=== PATIENT | female | born 1960 | race Caucasian/White ===

== ENCOUNTER 2016-11-10 12:24 | Emergency (ER) | payer MEDICARE, OTHER ==
--- NOTE | 2016-11-10 13:53 | DIAGNOSTIC IMAGING REPORT ---
PROCEDURE: XR CHEST 2 VIEW INDICATION: COUGH TECHNIQUE: PA and lateral view. COMPARISON: None. FINDINGS: Lungs are clear. Cardiovascular structures are normal. Old right fifth rib fracture. Mild degenerative changes of the spine. IMPRESSION: 1. No acute changes.
--- NOTE | 2016-11-10 13:56 | ED NURSING NOTES ---
Clinical Report - Nurses [facility] [address] [place] [address] 11/10/2016 12:29 Patient: ANA WASHINGTON TRIAGE Triage time 12:40 Nov 10 2016. Acuity: LEVEL 3. Chief Complaint: COUGH, RUNNY NOSE and SORE THROAT. CHRYSTAL COMA SCORE: [place] Coma Scale: 15- eyes open spontaneously (4); best verbal response- oriented x 4 (5); best motor response- obeys commands (6). --12:52 Dereck Godinez R.N. 12:40 11/10/16. BP: 119/81. HR: 70. RR: 18. O2 saturation: 96%. Temp: 97.7 F. Pain level now 9/10. --12:52 Dereck Godinez R.N. Weight: 81.6 kg stated. Height/Length: 61 inches Per Patient. BMI: 34. --12:51 Dereck Godinez R.N. Medications MetFORMIN HCl Oral. --12:44 Dereck Godinez R.N. 70 30 insulin. --12:45 Dereck Godinez R.N. Fexofenadine HCl Oral. --12:46 Dereck Godinez R.N. Morphine Sulfate Oral. --12:46 Dereck Godinez R.N. OxyCODONE HCl Oral. --12:46 Dereck Godinez R.N. Vitamin Mixture Oral. --12:46 Dereck Godinez R.N. Lyrica Oral. --12:46 Dereck Godinez R.N. Allergies Flu Virus Vaccine. --12:47 Dereck Godinez R.N. Iodine. --12:47 Dereck Godinez R.N. History Arrived by private vehicle. Historian: patient. Accompanied by family. This started last night. ( c/o back pains and sciatic pains.). She has had a nasal discharge, chest congestion, chills, fatigue and a headache. She has had photophobia and difficulty breathing. Reports muscle aches. No sinus pain. PAST MEDICAL HX: Diabetes mellitus. Immunizations: up-to-date. The patient is post-menopausal. SOCIAL HX: Former smoker, end date 2008. No alcohol use or drug use. No infectious disease exposure. SELF HARM ASSESSMENT: A self harm assessment was performed. The patient answered "yes" to the question "Have you recently felt down, depressed, or hopeless?" and "no" to the question "Do you have thoughts of harming or killing yourself?". FALL RISK ASSESSMENT: Fall risk assessment completed. No fall risk identified. NUTRITIONAL RISK ASSESSMENT: The nutritional risk assessment revealed no deficiencies. FUNCTIONAL ASSESSMENT: Functional assessment: no impairments noted. LEARNING NEEDS ASSESSMENT: The learning needs assessment revealed no barriers. ABUSE ASSESSMENT: Abuse assessment: (yes) The patient was asked "Do you feel safe in your home?". SKIN INTEGRITY ASSESSMENT: Skin integrity risk assessment completed. No skin integrity risk identified. --12:52 Dereck Godinez R.N. PROBLEMS: Asthma without status asthmaticus. Depression. Fibromyalgia. Diabetes Mellitus. --12:49 Dereck Godinez R.N. ADDITIONAL SURGERIES: Cholecystectomy. . Stomach surgery . --12:49 Dereck Godinez R.N. Interventions ID and allergy band on patient. --12:52 Dereck Godinez R.N. PHYSICAL ASSESSMENT Ambulatory to room. GENERAL / NEURO / PSYCH: Alert. Oriented X 4. Appears in no acute distress. HEENT: Pupils equal, round and reactive to light. Ears within normal limits. Runny nose. Nares within normal limits. Mouth within normal limits upon inspection. Pharynx within normal limits. Voice within normal limits. ( Patient states throat hurts pretty bad.). Mucous membranes are pink. RESPIRATORY: Respirations not labored. Breath sounds within normal limits. CVS: Normal sinus rhythm noted. Capillary refill less than 2 seconds. SKIN: Skin is warm and dry. Normal skin turgor. --12:53 Dereck Godinez R.N. NURSING PROGRESS NOTES Pulse oximeter and NIBP monitor placed on patient. Head of bed elevated (90). Reassurance given. Call light placed in reach. Side rails up x 1. Bed placed in lowest position. Brakes of bed on. --12:54 Dereck Godinez R.N. 13:07 11/10/2016 Toradol (Ketorolac Tromethamine) IM 60 mg given. Given in the right gluteus audrey and left gluteus audrey (split dose). Allergies verified and confirmed 5 rights. --13:07 Dereck Godinez R.N. DISPOSITION / DISCHARGE Departure time: 14:Nov 10 2016. Condition at departure: improved. No learning barriers present. Discharge instructions provided and reviewed with the patient. Reviewed warnings. Reviewed medication(s). Treatments reviewed. Reviewed referrals. Patient verbalized understanding. Written instructions provided in Irish. The patient was discharged home and accompanied by family. She left the Emergency Department ambulatory and via private vehicle. Family member driving. --14:45 Dereck Godinez R.N. 14:33 11/10/16. BP: 122/72. HR: 72. RR: 20. O2 saturation: 98%. Temp: 98.4 F. Pain level now 0/10. --14:45 Dereck Godinez R.N. Locked/Released at 11/11/2016 9:50 by Dereck Godinez R.N.
--- NOTE | 2016-11-10 13:56 | ED NURSING NOTES ---
Clinical Report - Nurses [facility] [address] [place] [address] 11/10/2016 12:29 Patient: ANA WASHINGTON TRIAGE Triage time 12:40 Nov 10 2016. Acuity: LEVEL 3. Chief Complaint: COUGH, RUNNY NOSE and SORE THROAT. CHRSYTAL COMA SCORE: [place] Coma Scale: 15- eyes open spontaneously (4); best verbal response- oriented x 4 (5); best motor response- obeys commands (6). --12:52 Dereck Godinez R.N. 12:40 11/10/16. BP: 119/81. HR: 70. RR: 18. O2 saturation: 96%. Temp: 97.7 F. Pain level now 9/10. --12:52 Dereck Godinez R.N. Weight: 81.6 kg stated. Height/Length: 61 inches Per Patient. BMI: 34. --12:51 Dereck Godinez R.N. Medications MetFORMIN HCl Oral. --12:44 Dereck Godinez R.N. 70 30 insulin. --12:45 Dereck Godinez R.N. Fexofenadine HCl Oral. --12:46 Dereck Godinez R.N. Morphine Sulfate Oral. --12:46 Dereck Godinez R.N. OxyCODONE HCl Oral. --12:46 Dereck Godinez R.N. Vitamin Mixture Oral. --12:46 Dereck Godinez R.N. Lyrica Oral. --12:46 Dereck Godinez R.N. Allergies Flu Virus Vaccine. --12:47 Dereck Godinez R.N. Iodine. --12:47 Dereck Godinez R.N. History Arrived by private vehicle. Historian: patient. Accompanied by family. This started last night. ( c/o back pains and sciatic pains.). She has had a nasal discharge, chest congestion, chills, fatigue and a headache. She has had photophobia and difficulty breathing. Reports muscle aches. No sinus pain. PAST MEDICAL HX: Diabetes mellitus. Immunizations: up-to-date. The patient is post-menopausal. SOCIAL HX: Former smoker, end date 2008. No alcohol use or drug use. No infectious disease exposure. SELF HARM ASSESSMENT: A self harm assessment was performed. The patient answered "yes" to the question "Have you recently felt down, depressed, or hopeless?" and "no" to the question "Do you have thoughts of harming or killing yourself?". FALL RISK ASSESSMENT: Fall risk assessment completed. No fall risk identified. NUTRITIONAL RISK ASSESSMENT: The nutritional risk assessment revealed no deficiencies. FUNCTIONAL ASSESSMENT: Functional assessment: no impairments noted. LEARNING NEEDS ASSESSMENT: The learning needs assessment revealed no barriers. ABUSE ASSESSMENT: Abuse assessment: (yes) The patient was asked "Do you feel safe in your home?". SKIN INTEGRITY ASSESSMENT: Skin integrity risk assessment completed. No skin integrity risk identified. --12:52 Dereck Godinez R.N. PROBLEMS: Asthma without status asthmaticus. Depression. Fibromyalgia. Diabetes Mellitus. --12:49 Dereck Godinez R.N. ADDITIONAL SURGERIES: Cholecystectomy. . Stomach surgery . --12:49 Dereck Godinez R.N. Interventions ID and allergy band on patient. --12:52 Dereck Godinez R.N. PHYSICAL ASSESSMENT Ambulatory to room. GENERAL / NEURO / PSYCH: Alert. Oriented X 4. Appears in no acute distress. HEENT: Pupils equal, round and reactive to light. Ears within normal limits. Runny nose. Nares within normal limits. Mouth within normal limits upon inspection. Pharynx within normal limits. Voice within normal limits. ( Patient states throat hurts pretty bad.). Mucous membranes are pink. RESPIRATORY: Respirations not labored. Breath sounds within normal limits. CVS: Normal sinus rhythm noted. Capillary refill less than 2 seconds. SKIN: Skin is warm and dry. Normal skin turgor. --12:53 Dereck Godinez R.N. NURSING PROGRESS NOTES Pulse oximeter and NIBP monitor placed on patient. Head of bed elevated (90). Reassurance given. Call light placed in reach. Side rails up x 1. Bed placed in lowest position. Brakes of bed on. --12:54 Dereck Godinez R.N. 13:07 11/10/2016 Toradol (Ketorolac Tromethamine) IM 60 mg given. Given in the right gluteus audrey and left gluteus audrey (split dose). Allergies verified and confirmed 5 rights. --13:07 Dereck Godinez R.N. DISPOSITION / DISCHARGE Departure time: 14:Nov 10 2016. Condition at departure: improved. No learning barriers present. Discharge instructions provided and reviewed with the patient. Reviewed warnings. Reviewed medication(s). Treatments reviewed. Reviewed referrals. Patient verbalized understanding. Written instructions provided in Japanese. The patient was discharged home and accompanied by family. She left the Emergency Department ambulatory and via private vehicle. Family member driving. --14:45 Dereck Godinez R.N. 14:33 11/10/16. BP: 122/72. HR: 72. RR: 20. O2 saturation: 98%. Temp: 98.4 F. Pain level now 0/10. --14:45 Dereck Godinez R.N. Locked/Released at 11/11/2016 9:50 by Dereck Godinez R.N.
--- NOTE | 2016-11-10 13:56 | ED CLINICAL REPORT ---
Clinical Report - Physicians/Mid Levels [facility] [address] [place] [address] 11/10/2016 12:29 Patient: ANA WASHINGTON Time Seen: 12:38; initial patient contact. Arrived- By private vehicle. Historian- patient. HISTORY OF PRESENT ILLNESS Chief Complaint: COUGH, SORE THROAT and CHILLS. This started about 2 weeks ago and is still present. It was gradual in onset. The illness is described as mild. The patient has had sputum production, a cough, a sore throat, nasal congestion and sinus drainage. She has had chills, muscle aches and a nasal discharge. No difficulty breathing, chest discomfort or pain, fever or hoarseness. No sinus pressure. Additional history - No known contact with a sick individual. Similar symptoms previously: None. Recent medical care: Not recently seen/assessed. REVIEW OF SYSTEMS No headache, nausea or vomiting. She has had back pain. All systems otherwise negative, except as recorded above. PAST HISTORY Asthma without status asthmaticus. Depression. Fibromyalgia. Diabetes Mellitus. SURGERIES: Cholecystectomy. . Stomach surgery. SOCIAL HISTORY Former smoker. No alcohol use or drug use. ADDITIONAL NOTES The nursing notes have been reviewed with agreement regarding the chief complaint, PMH and patient medications and allergies. PHYSICAL EXAM Vital Signs: 11/10/2016 12:40 BP: 119/81. HR: 70. RR: 18. O2 saturation: 96%. Temp: 97.7 F. Have been reviewed as normal. Appearance: Alert. No acute distress. Eyes: Eyes normal inspection. ENT: Ears normal. Nose normal. Mild generalized pharyngeal erythema. The mucous membranes are not dry. Neck: No lymphadenopathy. CVS: Normal heart rate and rhythm. Heart sounds normal. Respiratory: No respiratory distress. Breath sounds normal. Back: Mild soft-tissue tenderness in the right lower and left lower lumbar area. No CVA tenderness. Skin: No rash. Neuro: Oriented X 3. LABS, X-RAYS, AND EKG Chest X-ray: No acute disease. Normal lung markings present. Normal heart size. Mediastinum normal. Great vessels normal. Soft tissues normal. No infiltrate. No fracture. No bony lesion present. Views: PA and lateral. Technique: good. The X-rays were independently viewed by me and interpreted contemporaneously by me. Prior films were not available for comparison. Interpretation time: 13:47. PROGRESS AND PROCEDURES Course of Care: Toradol 60mg IM given. Physical exam findings are improved. Symptoms much better. Disposition: Discharged home in good and improved condition. Condition: good. CLINICAL IMPRESSION Acute maxillary sinusitis Chronic nontraumatic lumbar back pain associated with sprain. INSTRUCTIONS Your Current Medications: CONTINUE TAKING THE FOLLOWING MEDICATIONS: 70 30 insulin*. Fexofenadine HCl Oral. Lyrica Oral. MetFORMIN HCl Oral. Morphine Sulfate Oral. OxyCODONE HCl Oral. Vitamin Mixture Oral. Prescription Medications: Zithromax 500 mg tablets: take 1 orally every day for 3 days. No refills. Substitution is permissible. Follow-up: Follow up with your doctor in about three days if not better. Call for an appointment. Screening today revealed the patient's blood pressure to be in the pre-hypertensive range. The patient should follow up with a primary care provider for blood pressure management. (Electronically signed by Albaro Olguin Dr. 11/10/2016 14:02)
--- NOTE | 2016-11-10 13:56 | ED ORDER SUMMARY ---
..... Patient: ANA WASHINGTON H OrderSheet [facility] VisitID: [id number] [address] [place] [address] 55y, F Registration Date/Time: 11/10/2016 ORDER SHEET Weight: 81.6 kg (stated) Allergies: Flu Virus Vaccine, Iodine GENERAL ORDERS: Chest 2V Urgent (12:58 11/10/2016 Jean-Pierre Gomez) (Ack 13:06 Jack) MEDICATION ORDERS: Toradol IM 60 mg (NOW) (12:59 11/10/2016 Jean-Pierre Gomez) (13:07 Richie Gonzalez.NToy) IV FLUIDS: ORDER SHEET NOTES: [Electronically signed by Albaro Olguin Dr. (14:02 11/10/2016)] [Electronically signed by Dereck Godinez R.N. (09:50 11/11/2016)] [Electronically locked/signed by Dereck Godinez R.N. (09:50 11/11/2016)]
--- NOTE | 2016-11-10 13:56 | ED ORDER SUMMARY ---
..... Patient: ANA WASHINGTON H OrderSheet [facility] VisitID: [id number] [address] [place] [address] 55y, F Registration Date/Time: 11/10/2016 ORDER SHEET Weight: 81.6 kg (stated) Allergies: Flu Virus Vaccine, Iodine GENERAL ORDERS: Chest 2V Urgent (12:58 11/10/2016 Jean-Pierre Gomez) (Ack 13:06 Jack) MEDICATION ORDERS: Toradol IM 60 mg (NOW) (12:59 11/10/2016 Jean-Pierre Gomez) (13:07 Richie Gonzalez.NToy) IV FLUIDS: ORDER SHEET NOTES: [Electronically signed by Albaro Olguin Dr. (14:02 11/10/2016)] [Electronically signed by Dereck Godinez R.N. (09:50 11/11/2016)] [Electronically locked/signed by Dereck Godinez R.N. (09:50 11/11/2016)]
--- NOTE | 2016-11-10 13:56 | ED CLINICAL REPORT ---
Clinical Report - Physicians/Mid Levels [facility] [address] [place] [address] 11/10/2016 12:29 Patient: ANA WASHINGTON Time Seen: 12:38; initial patient contact. Arrived- By private vehicle. Historian- patient. HISTORY OF PRESENT ILLNESS Chief Complaint: COUGH, SORE THROAT and CHILLS. This started about 2 weeks ago and is still present. It was gradual in onset. The illness is described as mild. The patient has had sputum production, a cough, a sore throat, nasal congestion and sinus drainage. She has had chills, muscle aches and a nasal discharge. No difficulty breathing, chest discomfort or pain, fever or hoarseness. No sinus pressure. Additional history - No known contact with a sick individual. Similar symptoms previously: None. Recent medical care: Not recently seen/assessed. REVIEW OF SYSTEMS No headache, nausea or vomiting. She has had back pain. All systems otherwise negative, except as recorded above. PAST HISTORY Asthma without status asthmaticus. Depression. Fibromyalgia. Diabetes Mellitus. SURGERIES: Cholecystectomy. . Stomach surgery. SOCIAL HISTORY Former smoker. No alcohol use or drug use. ADDITIONAL NOTES The nursing notes have been reviewed with agreement regarding the chief complaint, PMH and patient medications and allergies. PHYSICAL EXAM Vital Signs: 11/10/2016 12:40 BP: 119/81. HR: 70. RR: 18. O2 saturation: 96%. Temp: 97.7 F. Have been reviewed as normal. Appearance: Alert. No acute distress. Eyes: Eyes normal inspection. ENT: Ears normal. Nose normal. Mild generalized pharyngeal erythema. The mucous membranes are not dry. Neck: No lymphadenopathy. CVS: Normal heart rate and rhythm. Heart sounds normal. Respiratory: No respiratory distress. Breath sounds normal. Back: Mild soft-tissue tenderness in the right lower and left lower lumbar area. No CVA tenderness. Skin: No rash. Neuro: Oriented X 3. LABS, X-RAYS, AND EKG Chest X-ray: No acute disease. Normal lung markings present. Normal heart size. Mediastinum normal. Great vessels normal. Soft tissues normal. No infiltrate. No fracture. No bony lesion present. Views: PA and lateral. Technique: good. The X-rays were independently viewed by me and interpreted contemporaneously by me. Prior films were not available for comparison. Interpretation time: 13:47. PROGRESS AND PROCEDURES Course of Care: Toradol 60mg IM given. Physical exam findings are improved. Symptoms much better. Disposition: Discharged home in good and improved condition. Condition: good. CLINICAL IMPRESSION Acute maxillary sinusitis Chronic nontraumatic lumbar back pain associated with sprain. INSTRUCTIONS Your Current Medications: CONTINUE TAKING THE FOLLOWING MEDICATIONS: 70 30 insulin*. Fexofenadine HCl Oral. Lyrica Oral. MetFORMIN HCl Oral. Morphine Sulfate Oral. OxyCODONE HCl Oral. Vitamin Mixture Oral. Prescription Medications: Zithromax 500 mg tablets: take 1 orally every day for 3 days. No refills. Substitution is permissible. Follow-up: Follow up with your doctor in about three days if not better. Call for an appointment. Screening today revealed the patient's blood pressure to be in the pre-hypertensive range. The patient should follow up with a primary care provider for blood pressure management. (Electronically signed by Albaro Olguin Dr. 11/10/2016 14:02)
--- NOTE | 2016-11-11 09:51 | ED MED RECONCILIATION SUMMARY ---
Patient: ANA WASHINGTON Medication Reconciliation Report [facility] VisitID: [id number] [address] [place] [address] 55y, F Registration Date/Time: 11/10/2016 Weight: 81.6 kg Height/Length: 61 in. BMI: 34.0 ALLERGIES: Flu Virus Vaccine, Iodine The patient's Home Medications are listed below: CONTINUE TAKING THE FOLLOWING MEDICATIONS: 70 30 insulin Fexofenadine HCl Oral Lyrica Oral MetFORMIN HCl Oral Morphine Sulfate Oral OxyCODONE HCl Oral Vitamin Mixture Oral The source(s) of the original Home Medication information: Not obtained. The following Medications were given to the patient in the Emergency Department: Toradol [IM] IM 60 mg, administered: 11/10/2016 1:07:00 PM The following Medications were prescribed to the patient: Zithromax 500 mg tablets: take 1 orally every day for 3 days. No refills. Substitution is permissible. -- Albaro lOguin Dr.
--- NOTE | 2016-11-11 09:51 | ED DISCHARGE INSTRUCTIONS ---
Patient: ANA WASHINGTON General Instructions [facility] VisitID: [id number] [address] [place] [address] 55y, F Registration Date/Time: 11/10/2016 Acute maxillary sinusitis Chronic nontraumatic lumbar back pain associated with sprain. INSTRUCTIONS Your Current Medications: CONTINUE TAKING THE FOLLOWING MEDICATIONS: 70 30 insulin*. Fexofenadine HCl Oral. Lyrica Oral. MetFORMIN HCl Oral. Morphine Sulfate Oral. OxyCODONE HCl Oral. Vitamin Mixture Oral. Prescription Medications: Zithromax 500 mg tablets: take 1 orally every day for 3 days. No refills. Substitution is permissible. Follow-up: Follow up with your doctor in about three days if not better. Call for an appointment. Screening today revealed the patient's blood pressure to be in the pre-hypertensive range. The patient should follow up with a primary care provider for blood pressure management. ADDITIONAL INFORMATION Sinusitis [Abx Tx] The sinuses are air-filled spaces within the bones of the face. They connect to the inside of the nose. Sinusitis is an inflammation of the tissue lining the sinus cavity. Sinus inflammation can occur during a cold or hay-fever (allergies to pollens and other particles in the air) and cause symptoms of sinus congestion and fullness. A sinus infection causes fever, headache and facial pain. There is usually green or yellow drainage from the nose or into the back of the throat (post-nasal drip). Antibiotics are prescribed to treat this condition. Home Care: Drink plenty of water, hot tea, and other liquids to stay well hydrated. This thins the mucus and promotes sinus drainage. Apply heat to the painful areas of the face. Use a towel soaked in hot water. Or, director of fundraising the shower and direct the hot spray onto your face. This is a good way to inhale warm water vapor and get heat on your face at the same time. (Cover your mouth and nose with your hands so you can still breathe as you do this.) Use a vaporizer with products such as Vicks VapoRub (contains menthol) at night. Suck on peppermint, menthol or eucalyptus hard candies during the day. An expectorant containing guaifenesin (such as Robitussin), helps to thin the mucus and promote drainage from the sinuses. Hyla-xab-uxwaehi decongestants may be used unless a similar medicine was prescribed. Nasal sprays work the fastest. Use one that contains phenylephrine (Agus-synephrine, Sinex and others) or oxymetazoline (Afrin). First blow the nose gently to remove mucus, then apply the drops. Do not use these medicines more often than directed on the label or for more than three days or symptoms may worsen. You may also use tablets containing pseudoephedrine (Sudafed). Many sinus remedies combine ingredients, which may increase side effects. Read the labels or ask the pharmacist for help. NOTE: Persons with high blood pressure should not use decongestants. They can raise blood pressure. Antihistamines are useful if allergies are a cause of your sinusitis. The mildest one is chlorpheniramine (available without a prescription). The dose for adults is 8-12mg three times a day. [NOTE: Do not use chlorpheniramine if you have glaucoma or if you are a man with trouble urinating due to an enlarged prostate.] Claritin (loratidine) is an antihistamine that causes less drowsiness and is a good alternative for daytime use. Do not use nasal rinses or irrigation during an acute sinus infection, unless advised by your doctor. Rinsing may spread the infection to other sinuses. You may use acetaminophen (Tylenol) or ibuprofen (Motrin, Advil) to control pain, unless another pain medicine was prescribed. [ NOTE: If you have chronic liver or kidney disease or ever had a stomach ulcer, talk with your doctor before using these medicines.] (Aspirin should never be used in anyone under 18 years of age who is ill with a fever. It may cause severe liver damage.) Finish the full course, even if you are feeling better after a few days. Follow Up with your doctor or this facility in one week or as instructed by our staff if not improving. Get Prompt Medical Attention if any of the following occur: Facial pain or headache becomes more severe Stiff neck Unusual drowsiness or confusion, or not acting like your normal self Swelling of the forehead or eyelids Vision problems including blurred or double vision Fever of 100.4F (38C) or higher, or as directed by your healthcare provider Seizure Back Pain [Acute Or Chronic] Back pain is usually caused by an injury to the muscles or ligaments of the spine. Sometimes the disks that separate each bone in the spine may bulge and cause pain by pressing on a nearby nerve. Back pain may also appear after a sudden twisting/bending force (such as in a car accident), after a simple awkward movement, or lifting something heavy with poor body positioning. In either case, muscle spasm is often present and adds to the pain. Acute back pain usually gets better in one to two weeks. Back pain related to disk disease, arthritis in the spinal joints or spinal stenosis (narrowing of the spinal canal) can become chronic and last for months or years. Unless you had a physical injury (for example, a car accident or fall) X-rays are usually not ordered for the initial evaluation of back pain. If pain continues and does not respond to medical treatment, x-rays and other tests may be performed at a later time. Home Care: You may need to stay in bed the first few days. But, as soon as possible, begin sitting or walking to avoid problems with prolonged bed rest (muscle weakness, worsening back stiffness and pain, blood clots in the legs). When in bed, try to find a position of comfort. A firm mattress is best. Try lying flat on your back with pillows under your knees. You can also try lying on your side with your knees bent up towards your chest and a pillow between your knees. Avoid prolonged sitting. This puts more stress on the lower back than standing or walking. During the first two days after injury, apply an ICE PACK to the painful area for 20 minutes every 2-4 hours. This will reduce swelling and pain. HEAT (hot shower, hot bath or heating pad) works well for muscle spasm. You can start with ice, then switch to heat after two days. Some patients feel best alternating ice and heat treatments. Use the one method that feels the best to you. You may use acetaminophen (Tylenol) or ibuprofen (Motrin, Advil) to control pain, unless another pain medicine was prescribed. [NOTE: If you have chronic liver or kidney disease or ever had a stomach ulcer or GI bleeding, talk with your doctor before using these medicines.] Be aware of safe lifting methods and do not lift anything over 15 pounds until all the pain is gone. Follow Up with your doctor or this facility if your symptoms do not start to improve after one week. Physical therapy may be needed. [NOTE: If X-rays were taken, they will be reviewed by a radiologist. You will be notified of any new findings that may affect your care.] Get Prompt Medical Attention if any of the following occur: Pain becomes worse or spreads to your legs Weakness or numbness in one or both legs Loss of bowel or bladder control Numbness in the groin or genital area Azithromycin Oral tablet What is this medicine? AZITHROMYCIN (az nicola jose) is a macrolide antibiotic. It is used to treat or prevent certain kinds of bacterial infections. It will not work for colds, flu, or other viral infections. How should I use this medicine? Take this medicine by mouth with a full glass of water. Follow the directions on the prescription label. The tablets can be taken with food or on an empty stomach. If the medicine upsets your stomach, take it with food. Take your medicine at regular intervals. Do not take your medicine more often than directed. Take all of your medicine as directed even if you think your are better. Do not skip doses or stop your medicine early. Talk to your treasury accountant regarding the use of this medicine in children. Special care may be needed. What side effects may I notice from receiving this medicine? Side effects that you should report to your doctor or health healthcare analyst as soon as possible: allergic reactions like skin rash, itching or hives, swelling of the face, lips, or tongue confusion, nightmares or hallucinations dark urine difficulty breathing hearing loss irregular heartbeat or chest pain pain or difficulty passing urine redness, blistering, peeling or loosening of the skin, including inside the mouth white patches or sores in the mouth yellowing of the eyes or skin Side effects that usually do not require medical attention (report to your doctor or health healthcare analyst if they continue or are bothersome): diarrhea dizziness, drowsiness headache stomach upset or vomiting tooth discoloration vaginal irritation What may interact with this medicine? Do not take this medicine with any of the following medications: lincomycin This medicine may also interact with the following medications: amiodarone antacids cyclosporine digoxin magnesium nelfinavir phenytoin warfarin What if I miss a dose? If you miss a dose, take it as soon as you can. If it is almost time for your next dose, take only that dose. Do not take double or extra doses. Where should I keep my medicine? Keep out of the reach of children. Store at room temperature between 15 and 30 degrees C (59 and 86 degrees F). Throw away any unused medicine after the expiration date. What should I tell my health care provider before I take this medicine? They need to know if you have any of these conditions: kidney disease liver disease irregular heartbeat or heart disease an unusual or allergic reaction to azithromycin, erythromycin, other macrolide antibiotics, foods, dyes, or preservatives or trying to get breast-feeding What should I watch for while using this medicine? Tell your doctor or health healthcare analyst if your symptoms do not improve. Do not treat diarrhea with over the counter products. Contact your doctor if you have diarrhea that lasts more than 2 days or if it is severe and watery. This medicine can make you more sensitive to the sun. Keep out of the sun. If you cannot avoid being in the sun, wear protective clothing and use sunscreen. Do not use sun lamps or tanning beds/booths. You have been given the following additional information: Sinusitis, Abx Tx Back Pain (Acute Or Chronic) Azithromycin Oral tablet (Electronically signed by Albaro Olguin Dr. 11/10/2016 14:02)
--- NOTE | 2016-11-11 09:51 | ED MED RECONCILIATION SUMMARY ---
Patient: ANA WASHINGOTN Medication Reconciliation Report [facility] VisitID: [id number] [address] [place] [address] 55y, F Registration Date/Time: 11/10/2016 Weight: 81.6 kg Height/Length: 61 in. BMI: 34.0 ALLERGIES: Flu Virus Vaccine, Iodine The patient's Home Medications are listed below: CONTINUE TAKING THE FOLLOWING MEDICATIONS: 70 30 insulin Fexofenadine HCl Oral Lyrica Oral MetFORMIN HCl Oral Morphine Sulfate Oral OxyCODONE HCl Oral Vitamin Mixture Oral The source(s) of the original Home Medication information: Not obtained. The following Medications were given to the patient in the Emergency Department: Toradol [IM] IM 60 mg, administered: 11/10/2016 1:07:00 PM The following Medications were prescribed to the patient: Zithromax 500 mg tablets: take 1 orally every day for 3 days. No refills. Substitution is permissible. -- Albaro Olguin Dr.
--- NOTE | 2016-11-11 09:51 | ED MAR SUMMARY ---
..... Medication Administration Record [facility] [address] [address] Patient: ANA WASHINGTON Visit ID: [id number] 55y, F Weight: 81.6 kg Height/Length: 61 in BMI: 34 ALLERGIES: Iodine, Flu Virus Vaccine Given 13:07 11/10/2016 Dereck Godinez R.N. Medication Administered: TORADOL [IM] (KETOROLAC TROMETHAMINE), Dose: 60 mg IM. Medication Ordered: Toradol IM 60 mg (NOW).
--- NOTE | 2016-11-11 09:51 | ED MAR SUMMARY ---
..... Medication Administration Record [facility] [address] [place] [address] Patient: ANA WASHINGTON Visit ID: [id number] 55y, F Weight: 81.6 kg Height/Length: 61 in BMI: 34 ALLERGIES: Iodine, Flu Virus Vaccine Given 13:07 11/10/2016 Dereck Godinez R.N. Medication Administered: TORADOL [IM] (KETOROLAC TROMETHAMINE), Dose: 60 mg IM. Medication Ordered: Toradol IM 60 mg (NOW).
== END 2016-11-10 14:25 | disposition home or self-care (01) ==
LOC: EKG SRH 12:24 → ED SRH 12:30
DX: J01.00 Acute maxillary sinusitis, unspecified (principal); M54.5 Low back pain; E11.9 Type 2 diabetes mellitus without complications; Z79.84 Long term (current) use of oral hypoglycemic drugs; Z88.7 Allergy status to serum and vaccine; Z87.891 Personal history of nicotine dependence